=== PATIENT | female | born 1975 | race African-American/Black ===

== ENCOUNTER 2022-05-22 22:11 | Emergency (ER) | payer SELFPAY ==
[2022-05-22 22:19] VITALS: BP 154/87; TEMP 98.6; BMI 42.4
[2022-05-22] MEDS ORDERED: ALPRAZolam 0.25 MG TABLET PO ONE (23:35)
[2022-05-22] MEDS ORDERED: ALPRAZolam 0.25 MG TABLET ONE (23:39)
[2022-05-23 00:48] VITALS: PULSE 85; RESP 18
== END 2022-05-23 03:09 | disposition home or self-care (01) ==
LOC: JERFT 22:11 → JER 22:11
PROC: 0HQFXZZ Repair Right Hand Skin, External Approach (ICD-10-PCS; principal; 2022-05-22)
DX: S61.214A Laceration without foreign body of right ring finger without damage to nail, initial encounter (principal); W26.8XXA Contact with other sharp object(s), not elsewhere classified, initial encounter
CPT/HCPCS: 99283-25